=== PATIENT | female | born 1995 | race Hispanic/Latino ===

== ENCOUNTER 2024-11-26 20:05 | Observation (INO) | payer SELFPAY ==
[~2024-11-26] VITALS: Ht 175.3 cm; Wt 90.7 kg
[~2024-11-26 20:05] MED LIST: VERAPAMIL ER120 MG PO
[2024-11-26 20:24] VITALS: TEMP 98.8
[2024-11-26] MEDS ORDERED: SODIUM CHLORIDE FLUSH 10 ML SYR IV PRN (21:00)
[2024-11-26 21:01] LABS: BASOPHILS % 0.3 % (0.0-1.0); EOSINOPHILS % 0.1 % (0.0-6.0); LYMPHOCYTES % 6.7 % (18.0-39.1); MONOCYTES % 3.9 % (4.4-11.3); NEUTROPHILS % 88.9 % (38.7-80.0); RED CELL DISTRIBUTION WIDTH 13.0 % (11.7-14.4)
[2024-11-26 21:13] LABS: EST GLOMERULAR FILTRATION RATE 120.0 ML/MIN (>=60)
[2024-11-26 21:50] LABS: CORONAVIRUS COVID-19 AG NEGATIVE (NEGATIVE)
[2024-11-26] MEDS ORDERED: IOPAMIDOL 370 MG/ML 100 ML INFUS..BTL INJ ONE (23:06)
[2024-11-27] VITALS (7 sets, daily range): BP systolic 98–106; BP diastolic 57–65; PULSE 56–81; RESP 15–18; TEMP 98.1–99.1; O2SAT 96–100
[2024-11-27] MEDS ORDERED: SODIUM CHLORIDE FLUSH 10 ML SYR INJ PRN (01:00)
[2024-11-27] MEDS ORDERED: SODIUM CHLORIDE 0.9% 1000ML 1,000 ML IV SCH (12:15)
== END 2024-11-27 19:12 | disposition home or self-care (01) ==
LOC: ER 21:16 → ERHOLD 11-27 00:56 → IMCU 11-27 04:39 → MED/SURG 11-27 13:34
PROVIDERS: ADMIT Internal Medicine; ATTEND Internal Medicine
DX: R07.89 Other chest pain (principal); R00.2 Palpitations; I95.9 Hypotension, unspecified; Q24.5 Malformation of coronary vessels; Z95.810 Presence of automatic (implantable) cardiac defibrillator; I42.2 Other hypertrophic cardiomyopathy
CPT/HCPCS: 36415 ×2; 71045; 71260; 80053; 82550; 84484 ×2; 84702; 85025; 85379; 87428; 93005; 94760; 94799; 99284; G0378; Q9967